=== PATIENT | female | born 1960 | race Caucasian/White ===

== ENCOUNTER 2017-04-24 17:41 | Emergency (ER) | payer OTHER ==
[~2017-04-24] VITALS: Ht 149.9 cm; Wt 58.0 kg
[~2017-04-24 17:41] MED LIST: RANI150T9 PO; SUCR1TAB56 PO
[2017-04-24 17:45] VITALS: Ht 149.9 cm; Wt 58.0 kg
[2017-04-24] MEDS ORDERED: IBUPROFEN 200 MG TAB PO ONE (18:30)
[2017-04-24 18:35] LABS: ADD UMIC YES; UR ASCORBIC ACID NEGATIVE (NEGATIVE); UR BILIRUBIN (Dip) NEGATIVE (NEGATIVE); UR BLOOD (Dip) 3+ mg/dL (NEGATIVE); UR CLARITY SLIGHTLY CLOUDY (CLEAR); UR COLOR YELLOW (YELLOW); UR GLUCOSE (Dip) NEGATIVE (NEGATIVE); UR KETONES (Dip) NEGATIVE (NEGATIVE); UR LEUKOCYTE ESTERASE (Dip) TRACE Leu/ul (NEGATIVE); UR MUCUS MODERATE /HPF (NONE SEEN); UR NITRITE (Dip) NEGATIVE (NEGATIVE); UR RBC > 182 /HPF (0-5); UR SPECIFIC GRAVITY (Dip) 1.026 (1.003-1.030); UR TOTAL PROTEIN (Dip) NEGATIVE (NEGATIVE); UR UROBILINOGEN (Dip) 1+ mg/dL (NEGATIVE)
[2017-04-24] MEDS ORDERED: IBUPROFEN 400 MG TAB PO SCH (19:00)
--- NOTE | 2017-04-24 19:10 | RADRPT ---
PROCEDURE: US Pelvis. CLINICAL INDICATION: Pelvic pain. TECHNIQUE: The pelvis was evaluated with transabdominal and transvaginal sonography in the axial a nd sagittal planes. COMPARISON: No prior study is available for comparison. FINDINGS: The uterus measures 6.7 x 3.0 x 3.1 cm. There is no uterine enlargement or mass. The endometrium is normal with a thickness of 4 mm excluding the fluid. A small amount of fluid is present within the e ndometrial canal. The ovaries are not visualized. There is no other pelvic mass or free fluid. IMPRESSION: 1. Fluid within the endometrial canal. 2. Ovaries not visualized. 3. Otherwise normal pelvic ultrasound. RPTAT: QQ .Artis Zhao MD, MD Date Time Electronically viewed and signed by .Artis Zhao MD, on 04/24/2017 19:09 .R/
--- NOTE | 2017-04-24 19:58 | ERD ---
ER Documentation Chief Complaint Date/Time DATE: 04/24/17 TIME: 19:53 Chief Complaint pt bib family with c/o pelvic pain x8-9 days no bleeding HPI Incentive spirometry this 56-year-old Somali-speaking female presents to emergency department for pelvic pain for several days. Patient denies dysuria or vaginal discharge, reports menopausal 10 years, patient reports her last OB/ [facility]ET [employer] visit was in October 2016 and she never went back for test results. ROS All systems reviewed and are negative except as per history of present illness. Medications Home Meds Active Scripts Ranitidine Hcl* (Zantac*) 150 Mg Tablet, 150 MG PO BID Y for GI, #30 TAB Prov:WILLAM STAHL. 01/30/15 Sucralfate* (Carafate*) 1 Gm Tab, 1 GM PO QID, #30 TAB Prov:WILLAM STAHL Sivan. 01/30/15 Allergies Allergies: Coded Allergies: No Known Allergy (Unverified , 01/30/15) PMhx/Soc History of Surgery: Yes ( x 3) Hx Alcohol Use: No Hx Substance Use: No Hx Tobacco Use: No Smoking Status: Never smoker Physical Exam Vitals Vital Signs Date Time Temp Pulse Resp B/P Pulse Ox O2 Delivery O2 Flow Rate FiO2 04/24/17 17:45 97.3 75 16 102/60 99 Total stable, triage notes reviewed Physical Exam Const: Well-nourished well-appearing well-hydrated no acute distress Head: Eyes: Normal Conjunctiva, PERRLA, EOMI ENT: Normal External Ears, Nose and Mouth.Mucous membranes moist Neck: Resp: Clear to auscultation bilaterally No rales wheezes or rhonchi Cardio: Regular rate and rhythm, no murmurs Abd: Soft, pelvic tenderness, negative Hopper sign, no CVA tenderness Skin: Back: No midline or flank tenderness Ext: Neur: Awake and alert Psych: Normal Mood and Affect Results 24 hrs Laboratory Tests Test 04/24/17 18:07 Urine Color YELLOW Urine Clarity SLIGHTLY CLOUDY Urine pH 6.0 Urine Specific [place] 1.026 Urine Ketones NEGATIVEmg/dL Urine Nitrite NEGATIVEmg/dL Urine Bilirubin NEGATIVEmg/dL Urine Urobilinogen 1+mg/dL Urine Leukocyte Esterase TRACELeu/ul Urine Microscopic RBC > 182/HPF Urine Microscopic WBC 4/HPF Urine Mucus MODERATE/HPF Urine Hemoglobin 3+mg/dL Urine Glucose NEGATIVEmg/dL Urine Total Protein NEGATIVEmg/dl Current Medications Medications (Trade) Dose Ordered Sig/Julia Route PRN Reason Start Time Stop Time Status Last Admin Dose Admin Ibuprofen (Motrin) 400 mg ONCE ONCE PO 04/24/17 18:30 04/24/17 18:31 DC 04/24/17 18:39 Ibuprofen (Motrin) 400 mg ONCE PO 04/24/17 19:00 04/24/17 20:00 Urinalysis positive for leukocytosis and hematuria suggestive of infection. Procedures/MDM PROCEDURE: US Pelvis. CLINICAL INDICATION: Pelvic pain. TECHNIQUE: The pelvis was evaluated with transabdominal and transvaginal sonography in the axial and sagittal planes. COMPARISON: No prior study is available for comparison. FINDINGS: The uterus measures 6.7 x 3.0 x 3.1 cm. There is no uterine enlargement or mass. The endometrium is normal with a thickness of 4 mm excluding the fluid. A small amount of fluid is present within the endometrial canal. The ovaries are not visualized. There is no other pelvic mass or free fluid. IMPRESSION: 1. Fluid within the endometrial canal. 2. Ovaries not visualized. 3. Otherwise normal pelvic ultrasound. Electronically viewed and signed by .Artis Zhao MD, on 04/24/2017 19:09 This pleasant 56-year-old female presents to emergency department with pelvic pain, denies vaginal bleeding or vaginal discharge, patient is postmenopausal 10 years. Last [facility] evaluation was in October patient is unaware of findings did Departure Diagnosis: Primary Impression: Acute pain in female pelvis Condition: Good Patient Instructions: Understanding Urinary Tract Infections (UTIs) [facility] Additional Instructions: Thank you for for coming to [facility] for your care today. Please ask your nurse or provider if you have questions about your care today and do not leave until all your questions have been answered. Please use any medications given as directed and follow-up with your doctor (or the doctor you were referred to) in the next 2-3 days. If you do not have a primary care doctor you may follow up at the [facility] [place] (listed below). You may also use motrin and tylenol as needed for fever and/or pain unless instructed otherwise by your provider or nurse. Indications for more urgent follow-up have been discussed, but you may return to the Emergency Department at ANY time for any worrisome or worsening symptoms. If you have abdominal pain, please know that no test or exam you received is perfect and you should follow up within 8 hours for continued pain. If you had any imaging studies today, such as an X-Ray or CT Scan, these studies will be reviewed later by a radiologist. You will be called if there are important findings that were not identified today, so make sure the contact information you provided at registration is correct. If you received any narcotic pain control medicine today, such as Vicodin, Morphine or Dilaudid, your coordination and judgment may be affected for a number of hours. Please do not drive or operate heavy machinery, and you may want someone to assist you at home. If you were given a prescription for narcotic medication, be aware that it is very addictive- use sparingly and only if necessary. VIRGEN SERRANO Apr 24, 2017 19:58
[2017-04-24] MEDS ORDERED: NITR-58 PO (20:03)
[2017-04-24] MEDS ORDERED: IBUP400T22 PO (20:04)
[2017-04-24 20:37] VITALS: BP 105/62; PULSE 65; RESP 16; TEMP 98.4
== END 2017-04-24 20:38 | disposition home or self-care (01) ==
LOC: FTE 17:41
DX: R10.2 Pelvic and perineal pain (principal)
CPT/HCPCS: 76830; 76856; 81001; Z7502; Z7610